=== PATIENT | female | born 1985 | race Caucasian/White ===

== ENCOUNTER → 2018-10-05 15:52 | Outpatient (CLI) | payer MEDICAID, SELFPAY ==
[2016-07-30 08:36] VITALS: BMI 19.1
[2018-10-08 10:06] LABS: HPV Reflexed? NOT INDICATED
== END ==
PROVIDERS: PCP Family Medicine; Visit Provider Obstetrics & Gynecology
DX: Z12.4 Encounter for screening for malignant neoplasm of cervix (principal)
CPT/HCPCS: 88175; G0145

== ENCOUNTER 2018-11-02 02:25 | Emergency (ER) | payer MEDICAID, SELFPAY ==
[2018-11-02 02:26] VITALS: BP 115/90; PULSE 74; RESP 16; TEMP 36.8; O2SAT 99; BMI 16.9
--- NOTE | 2018-11-02 02:44 | ED.DCSUM_ITS ---
History of Present Illness Chief Complaint: Other, Pain/Inj Informant: Patient Onset: Today - JPTA Mechanism/Context: Blunt Injury Quality of Pain: - - sore Location: lower lip Current Severity: Mild Maximum Severity: Mild Worsened by: palpation Relieved by: leaving alone Associated Symptoms: - - laceration. Negative for: Parasthesias, Weakness, Loss of consciousness, Amnesia Narrative: Patient states she accidentally leaned over too hard and hit her lower lip into her daughter's dresser sustaining a laceration. She has no dental pain, no headache or nausea or other symptoms of a head injury, no other injuries. Tetanus Immunization: >10 years Past Medical History - Allergies and Home Meds Allergies/Adverse Reactions: Allergies No Known Allergies Allergy (Verified 11/02/18 02:29) Primary Care Physician: Chucho Bates MD [Primary Care Provider] - Past Medical History: None Lives: With Family Smoking Status: Current every day smoker Review of Systems Gastrointestinal: Denies: Nausea, Vomiting Musculoskeletal: Denies: Extremity Pain Skin: Reports: Wounds. Denies: Abscess Neurological: Denies: Headache, Weakness, Numbness Physical Exam Vital Signs/Narrative: Vital Signs Temp Pulse Resp BP Pulse Ox 11/02/18 02:26 98.2 F 74 16 115/90 H 99 Inital Vital Signs reviewed: Yes General: Well nourished, Well developed Head: Normocephalic, Atraumatic Eyes: Perrl, EOMI ENT: - - Jagged/irregular/stellate 2 cm lip laceration lower lip right of midline, does not involve the vermilion border but does go to it and involve the vermilion and into the mucosal side, full-thickness. Several V-shaped aspects and 2 flaps. No dental tenderness or loosening/trauma. Otherwise oral mucosa normal. Neck: Nontender, Full ROM Skin: Normal color, No rash, Trauma - Lip laceration, as above Neurological: Alert, Oriented x3, Cranial nerves II-XII grossly intact, Normal Strength, Normal Sensation, Normal Gait Psychological: Normal affect, Normal Mood Diagnostic/Tx/Re-eval - Medical Decision Making As I discussed with patient, plastic surgery Dr. Howe not available this weekend for unassigned patients. I want her to follow-up with him because of the complex city of the wound and in case there is not a favorable cosmetic outcome. I discussed with patient that I could repair this, and that transferring her to a tertiary care center might involve seeing a plastics resident, she was comfortable with staying here. She is comfortable with the overall plan. It took 10 sutures to close the wound in its entirety with all of its different directions, splits, V-shaped, and flaps. Laceration lower lip Length: 2 cm Depth: Sub Q - into SQ fat but not muscle Shape: Stellate Prep: Sterile Conditions, Chlorhexadine Laceration Repair: Lidocaine - 3cc Number of Sutures/Jennifer: 10 Stitch Description: Ethilon, Simple, 6-0 Comment: Very complex repair. I attempted to align all landmarks and flaps, the flap was very small and the laceration was stellate, macerated, with bourne bcutaneous fat herniating out of the wound due to trauma/swelling. ED Disposition - Plan for ED Patient: Disposition: Home or Assisted Living Diagnosis: Laceration of lower lip Instructions: LACERATION, Lip/Mouth Referrals: Eleazar Howe MD [STAFF PHYSICIAN] - 5 Days for suture removal
== END 2018-11-02 04:45 | disposition home or self-care (01) ==
PROVIDERS: Emergency Provider Emergency Medicine; Family Provider Family Medicine; PCP Family Medicine
DX: S01.511A Laceration without foreign body of lip, initial encounter (principal); W22.8XXA Striking against or struck by other objects, initial encounter; Y93.9 Activity, unspecified; Y92.89 Other specified places as the place of occurrence of the external cause; Y99.8 Other external cause status; F17.200 Nicotine dependence, unspecified, uncomplicated
CPT/HCPCS: 12011; 99283

== ENCOUNTER → 2019-11-29 | Outpatient (CLI) | payer MEDICAID, SELFPAY ==
[2018-11-16 15:00] VITALS: BMI 16.9
[2019-11-29 18:13] LABS: Chlamydia Trachomatis by PCR Negative (Negative); Neisserai gonorrhoeae by PCR Negative (Negative); Probe Check PASS; Sample Adequacy Control PASS; Specimen Processing Control PASS
[2019-11-30 09:00] LABS: HIV - WCH Non-Reactive (Nonreactive); Hepatitis B Surface Antigen Non-Reactive (Nonreactive); Hepatitis C Antibody Non-Reactive (Nonreactive)
[2019-12-02 02:04] LABS: Rapid Plasmin Reagin (RPR) NONREACTIVE (NONREACTIVE)
== END | disposition home or self-care (01) ==
LOC: WOBLAB 15:03
PROVIDERS: PCP Family Medicine; Visit Provider Student in an Organized Health Care Education/Training Program
DX: Z11.3 Encounter for screening for infections with a predominantly sexual mode of transmission (principal)
CPT/HCPCS: 36415; 86592; 86703; 86803; 87340; 87491; 87591

== ENCOUNTER → 2019-12-16 | Outpatient (CLI) | payer MEDICAID, SELFPAY ==
[2018-11-16 15:00] VITALS: BMI 16.9
--- NOTE | 2019-12-16 11:00 | VUL_PTH ---
PATIENT: RAD HAHN LOC: [facility] U#:[id number] AGE/SX: 34/F ROOM: RE12/16/[address]: Dr. Criss Bryant DO : 1985 BED: DIS: 12/16/2019 SPEC #: [id number] RECD: 12/16/19 13:33 STATUS: MAXIMINO REAdrián #: [id number] ROBYN: 12/16/19 11:[address]: Criss Bryant DEPT: SURGICAL PATHOLOGY RECD BY: Parul Hauser ENTERED: 12/16/19 14:03 SP TYPE: VULVA BX OT DR: Dr. Chucho Bates MD Tissues: Vulva, NOS Procedures: Surgery Specimen Level IV HEADER OPERATION: Excision condyloma vulva PRE-OP DIAGNOSIS: Condyloma vulva TISSUE SUBMITTED: Condyloma vulva MICROSCOPIC DIAGNOSIS Condyloma vulva, excision: Fragments of condyloma. SJ:donnie 12/17/19 MICROSCOPIC DESCRIPTION Slides are reviewed. GROSS DESCRIPTION Received in fixative is one container labeled with the patient's name and designated condyloma vulva. The specimen consists of multiple variable sized pieces of urbina-white to urbina-brown skin measuring 0.2 to 0.5 cm in greatest dimension and in aggregate 1.5 x 1 x 0.3 cm. The entire specimen is submitted in one cassette. / SJ:donnie 12/16/19 TC:5 CPT: 36341
== END | disposition home or self-care (01) ==
LOC: LABSPEC 11:55
PROVIDERS: PCP Family Medicine; Visit Provider Student in an Organized Health Care Education/Training Program
DX: A63.0 Anogenital (venereal) warts (principal)
CPT/HCPCS: 88305

== ENCOUNTER 2020-01-09 23:39 | Inpatient (IN) | payer MEDICAID, SELFPAY ==
[2018-11-16 15:00] VITALS: BMI 16.9
[2020-01-09 23:39] VITALS: BP 121/90; PULSE 109; RESP 18; TEMP 36.2; O2SAT 98; BMI 17.4
[2020-01-10] VITALS (8 sets, daily range): BP systolic 113–129; BP diastolic 76–91; PULSE 96–108; RESP 16–20; TEMP 36.2–37.1; O2SAT 92–99; BMI 16.8
--- NOTE | 2020-01-10 00:12 | ED.DCSUM_ITS ---
- ER Visit Summary Date of Service: 01/10/20 Chief Complaint: Alcohol detox History of Present Illness: The patient is a 34 F who presents requesting alcohol detox. Patient states she drinks at least 6 beers per day. Patient states her last drink was approximately 40 minutes ago. Patient states that she drinks to alleviate her anxiety. Patient is not on any anxiety medications at this time. Patient denies any nausea or vomiting. Patient denies any fevers or chills. Patient does admit to some palpitations but states that is from anxiety. Patient also admits to some chest pain or shortness of breath that she attributes to her anxiety. Physical Examination: Vital signs are stable except for mild tachycardia of 109. Patient is afebrile. Patient is in no acute distress. Oral mucosa is pink and moist. Neck is supple. Trachea is midline. There is no JVD noted. Heart was regular rate and rhythm. Lungs are clear and equal bilaterally. Abdomen is soft. Bowel sounds are normal. There is no tenderness. There is no rebound or guarding noted. Skin is warm dry. Cranial nerves II through XII are intact. There are no focal motor or sensory deficits noted. Extremities are intact. There is no calf tenderness or edema. Test Results: CBC, comprehensive metabolic profile, serum alcohol level, serum hCG, urine tox screen were ordered. AST was slightly elevated at 80. Alcohol level was 367. The remaining labs were essentially within normal limits. Emergency Department Course and Treatment: Case was discussed with the hospitalist. She will admit the patient to her service. Patient understood and was agreeable with the plan. All questions were answered. Disposition: Admit to hospital Impression: 1. Alcohol abuse This note was generated with [employer] dictation software. It may contain incorrect words, spelling, and punctuation that were not noted in review of the chart prior to signing ED Disposition - Plan for ED Patient: Disposition: Acute Care Hospital [facility] Diagnosis: Alcohol abuse
[2020-01-10 00:37] LABS: Absolute Lymphocyte Count 2.82 X10^3/uL (0.83-4.51); Basophil# 0.06 X10^3/uL; Basophil% 0.8 % (0-1); Eosinophil# 0.04 X10^3/uL; Eosinophils% 0.5 % (0-5); Hematocrit 42.5 % (37-47); Hemoglobin 15.1 g/dL (12.0-15.0); Lymphocyte # 2.82 X10^3/ul (4.0); Lymphocyte % 37.1 % (19-41); Mean Corp Hgb Conc 35.5 g/dL (32-36); Mean Corpuscular Hgb 35.5 pg (27.0-32.0); Mean Platelet Vol. 11.4 fl (6.2-12.0); Monocyte# 0.63 X10^3/uL; Monocyte% 8.3 % (0-10); NRBC Flagged by Analyzer 0 % (0-5); Neutrophil # 4.03 X10^3/uL (2.7-7.7); Neutrophil % 52.9 % (47-70); Platelet Count 208 K/mm3 (150-450); RBC Distribution Width CV 12.2 % (11.6-14.6); Red Blood Count 4.25 M/mm3 (4.2-5.4); White Blood Count 7.6 K/mm3 (4.4-11.0)
[2020-01-10 00:45] LABS: Amphetamine Urine VISTA NEGATIVE (<1000 ng/mL); Barbiturate Urine VISTA NEGATIVE (< 200 ng/mL); Benzodiazepine Urine VISTA NEGATIVE (< 200 ng/mL); Cocaine Urine VISTA NEGATIVE (< 300 ng/mL); Ecstacy Urine VISTA NEGATIVE (< 500 ng/mL); Methadone Urine VISTA NEGATIVE (< 300 ng/mL); PCP Urine VISTA NEGATIVE (< 25 ng/mL); THC Urine VISTA NEGATIVE (< 50 ng/mL); Vista UDS pH Range 6
[2020-01-10 00:50] LABS: Internal QC Validated? YES +Cl - CLEAR BKGD; Pregnancy, Serum, hCG Quali. NEGATIVE Negative
[2020-01-10 01:03] LABS: ALB/GLOB Ratio 0.7 RATIO (0.9-2.4); AST(SGOT) 80 U/L (15-37); Alanine Aminotransfer ALT/SGPT 46 U/L (13-56); Albumin, Serum 3.3 g/dL (3.2-5.0); Alkaline Phosphatase 95 U/L (45-117); Anion Gap 6 (5-15); BUN 4 mg/dL (7-18); BUN/Creat Ratio 6.9 RATIO (10-20); Calcium,Total 8.2 mg/dL (8.5-10.1); Chloride 115 mmol/L (98-107); Creatinine, Serum 0.58 mg/dL (0.55-1.02); EST Glomerular Filtration Rate 127 mL/min (>60); Est Glom Filt Rate - Afr Amer 154 mL/min (>60); Globulin 4.8 g/dL (2.2-4.2); Glucose 69 mg/dL (74-106); Potassium 3.9 mmol/L (3.5-5.1); Protein, Total 8.1 g/dL (6.4-8.2); Sodium Level 144 mmol/L (136-145)
--- NOTE | 2020-01-10 01:03 | HP.PCM_ITS ---
Problem List (1) Alcohol withdrawal Status: Acute Qualifiers: Complication of substance-induced condition: with unspecified complication Qualified Code(s): F10.239 - Alcohol dependence with withdrawal, unspecified (2) Anxiety and depression Status: Chronic (3) Panic attacks Status: Chronic (4) Severe protein-calorie malnutrition Status: Chronic (5) Alcohol abuse Status: Chronic (6) Smoker Status: Chronic History of Present Illness Date of Admission: 01/10/20 Chief Complaint: Requested EtOH detoxification The patient is a 34 y/o F w/ PMHx: Tobacco use, Anxiety and Depression with frequent Anxiety/panic attacks, ? Hx VTE, EtOH abuse (6 pack 12 ounce higher EtOH beers daily) who presents to the [facility] ED on 01/10/20 with history of last alcohol intake approximately 2 to 3 hours prior to current evaluation in the ED with onset of nausea without emesis, tremors and agitation as well as severe anxiety. Patient is interested in obtaining sober status. Patient has 2 children and are interested in being sober for their welfare. She notes the primary etiology for her drinking is her severe anxiety and when she has a panic attack this is how she is medicated herself. Work-up in the ED included 97.1, heart rate 109, BP 121/90, respiratory rate 18, 98% room air, CBC with WBC 7.6, hemoglobin 15.1, platelet 2 8 without shift, CMP with chloride 115, glucose 69, AST/ALT 80/46, negative serum testing, negative urine drug screen, ethyl alcohol level 367. 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 They are currently with family. Smoking Status: Current every day smoker - Patient with ongoing currently 2 pack/day cigarette tobacco usage noting that she started when she was 14 although initially less but increased over the years. Tobacco Use: Cigarettes Alcohol: Heavy - Patient with at least a sixpack daily of higher alcohol level beers. Drugs: None - *Family History Maternal Family History: Family History (Last Updated 11/09/18 @ 15:48 by Apple Omalley) Other Anemia Anxiety CVA (cerebral vascular accident) Depression History Items: - - Patient notes a maternal family history of thyroid disease. Paternal Family History: Family History (Last Updated 11/09/18 @ 15:48 by Apple Omalley) Other Anemia Anxiety CVA (cerebral vascular accident) Depression History Items: Diabetes Review of Systems Constitutional: Reports: Anorexia, Malaise, Weakness, Weight Change, Fatigue. Denies: Chills, Fever HEENT: Denies: Head Aches, Sinus Congestion, Sinus Drainage Cardiovascular: Denies: Chest Pain, Palpitations Respiratory: Denies: Cough, Shortness of breath at rest, Sputum production Gastrointestinal: Reports: Nausea. Denies: Abdominal Pain, Vomiting Genitourinary: Denies: Dysuria Musculoskeletal: Denies: Joint Pain, Joint Tenderness Skin: Denies: Rash, Wounds Neurological: Reports: Tremor. Denies: Focal weakness, Numbness, Tingling Psychiatric: Reports: Anxiety, Depression. Denies: Homicidal Ideations, Suicidal Ideations Hematologic/ Lymphatic: Denies: Easy Bruising, Easy Bleeding VTE Information - Inpt Only VTE Present on Admission: No VTE Mechan Device Prophylaxis: SCD's VTE Pharm Prophylaxis ordered?: Yes Patient Problems: Active and Suspected Problems (Last Updated 11/09/18 @ 15:44 by Apple Omalley) Alcohol withdrawal (Acute) Subjective: Seated upright in the ED bed, extremely anxious, tearful, restless. Objective: Physical Examination: General: awake, alert, oriented x 3 and cooperative, seated upright in the ED bed, restless, anxious, tearful. Skin: normal color, turgor, no icterus, cyanosis. HEENT: AT/NC, EOMI, PERRLA, dry MM, no carotid bruits or JVD noted. Lungs: CTA bilaterally, moderate effort, moderate decrease BL bases, no rales, ronchi or wheezing. Heart: Tachycardic with regular rhythm; no gallop, rub audible. Abdomen: soft, thin cachectic habitus, NTTP, ND, normal BS, positive HM, mild. Extremities: no cyanosis, clubbing, or edema. Neurological: patient awake, alert, oriented as noted; cognitive function suspect near intact; pupils equally reactive to light and accomodation; cranial nerves II-XII grossly normal, moving all 4 extremities, no focal deficits, strength mildly moderately global decrease secondary to acute presentation, mild tremors noted. Psychiatric: affect appears anxious, tearful, obvious evidence of depression and underlying severe anxiety. - Physical Exam Vitals/I&O's: Vital Signs Temp Pulse Resp BP Pulse Ox 97.1 F L 109 H 18 121/90 H 98 01/09/20 23:39 01/09/20 23:39 01/09/20 23:39 01/09/20 23:39 01/09/20 23:39 Oxygen Delivery Method Room Air Weight: 107 lb 12.897 oz Body Mass Index (BMI) 17.4 Laboratory Results 01/10/20 00:20: Urine Opiates Screen NEGATIVE, Urine Methadone Screen NEGATIVE, Ur Barbiturates Screen NEGATIVE, Ur Phencyclidine Scrn NEGATIVE, Ur Amphetamines Screen NEGATIVE, U Methamphetamin-MDMA NEGATIVE, U Benzodiazepines Scrn NEGATIVE, Urine Cocaine Screen NEGATIVE, U Cannabinoids Screen NEGATIVE, Ur Drug Screen Comment 01/10/20 00:25: WBC 7.6, RBC 4.25, Hgb 15.1 H, Hct 42.5, MCV 100.0 H, MCH 35.5 H , MCHC 35.5, RDW Std Deviation 45.0 H, RDW Coeff of Christelle 12.2, Plt Count 208, MPV 11.4, Immature Gran % (Auto) 0.400, Neut % (Auto) 52.9, Lymph % (Auto) 37.1, Granite % (Auto) 8.3, Eos % (Auto) 0.5, Baso % (Auto) 0.8, Absolute Neuts (auto) 4.0, Absolute Lymphs (auto) 2.82, Nucleated RBC % 0 01/10/20 00:25: Sodium Pending, Potassium Pending, Chloride Pending, Carbon Dioxide Pending, Anion Gap Pending, BUN Pending, Creatinine Pending, Est GFR (MDRD) Af Amer Pending, Est GFR (MDRD) Non-Af Pending, BUN/Creatinine Ratio Pending, Glucose Pending, Calcium Pending, Total Bilirubin Pending, AST Pending, ALT Pending, Alkaline Phosphatase Pending, Total Protein Pending, Albumin Pending 01/10/20 00:25: Ethyl Alcohol Pending 01/10/20 00:25: Serum , Qual NEGATIVE Assessment/Plan All Active Problems (Last Updated 11/09/18 @ 15:44 by Apple Omalley) Alcohol withdrawal (Acute) Laceration of lower lip (Acute) The patient is a 34 y/o F w/ PMHx: Tobacco use, Anxiety and Depression with frequent Anxiety/panic attacks, ? Hx VTE, EtOH abuse (6 pack 12 ounce higher EtOH beers daily) who presents to the [facility] ED on 01/10/20 with history of last alcohol intake approximately 2 to 3 hours prior to current evaluation in the ED with onset of nausea without emesis, tremors and agitation as well as severe anxiety. 1. Acute EtOH Withdrawal: Will admit to medical surgical floor, routine labs obtained in the ED upon presentation and notable for AST/ALT 80/46, ethyl alcohol level 367. Given interest in sobriety, will initiate and continue on protocol with taper course of Phenobarbital, scheduled gabapentin for seizure prophylaxis, as needed Catapres, Bentyl, Vistaril, IV fluids, IV antiemetics, Tylenol as needed for pain. Will consult Case management for assistance for t ransition to next level of rehabilitation care. Mag, phos pending. Maintain on CIWA protocol concurrently. Patient severe anxiety will need to be aggressively treated to assist in her sobriety. 2. Anxiety and Depression with Panic Attacks: Patient previously on Effexor but for unclear reasons stopped but willing to restart, following with counseling and understands that aggressive treatment of anxiety and depression including her panic attacks with ongoing therapy and medications will assist in continuing to aid her in success with sobriety. 3. Severe protein calorie malnutrition: Evidenced per reduced BMI of 16 as well as obvious fat and muscle loss, nutrition consulted for recommendations. 4. Tobacco Abuse: Encouraged cessation, inpatient consultation per RT, NR if desired. 5. ? History of VTE: Noted history and records, unclear if underlying hypercoagulable state, DVT prophylaxis to be cautious. 6. DVT prophylaxis: SCDs, Lovenox. Inpatient E&M: 59159 Init Hosp L3
[2020-01-10] MEDS: Phenobarbital 32.4 MG Tablet PO ×6 (02:17→21:49)
[2020-01-10] MEDS: 0.9% Saline Lock 10 ML Syringe IV ×2 (02:19→05:50)
[2020-01-10] MEDS: Lactated Ringers 1,000 ML 125 ML IV (02:22)
[2020-01-10 02:40] LABS: Magnesium 2.5 mg/dL (1.6-2.6); Phosphorus 3.9 mg/dL (2.5-4.9)
[2020-01-10] MEDS: Gabapentin 300 MG Capsule PO ×2 (04:59→18:10)
[2020-01-10] MEDS: hydrOXYzine PAM 25 MG Capsule 50 MG PO ×4 (05:58→20:45)
[2020-01-10] MEDS: Folic Acid 1 MG Tablet PO (08:22)
[2020-01-10] MEDS: Multivitamins,Therapeutic Tablet 1 TABLET PO (08:22)
[2020-01-10] MEDS: Enoxaparin 40 MG/0.4 ML Syringe SC (08:22)
[2020-01-10] MEDS: Thiamine Hydrochloride 100 MG Tablet PO (08:22)
--- NOTE | 2020-01-10 10:07 | ADDICTION ---
This typewriter tester met with patient in her room to complete ASAM, MSE, AUDIT assessments and to begin planning for discharge. She reports that she has been ingesting a 6pack+ of high alcoholic content IPA beer due to ongoing, severe anxiety and panic attacks. She appears appropriate for the 4.0 LOC at this time. Patient's discharge plan: Planned for 01/14/2020- Refused coordination for transportation stating that she will be able to coordinate transport upon d/c when she gets her cell phone. She has a counseling appointment with [facility] on 01/17/2020. She has a psychiatric appointment with [facility] on 01/24/2020.
--- NOTE | 2020-01-10 10:33 | PCM.NTREPORT ---
Nutrition Therapy Report - History Current diet / nutrition support order:: Regular - Anthropometric Measurements Height:: 5 ft 6 in Weight:: 47.287 kg Body Mass Index (BMI):: 16.8 - Relevant Labs Relevant Labs:: Hgb 15.1 g/dL (12.0-15.0) H 01/10/20 00:25 MCV 100.0 fL (81-99) H 01/10/20 00:25 MCH 35.5 pg (27.0-32.0) H 01/10/20 00:25 RDW Std Deviation 45.0 fl (35.1-43.9) H 01/10/20 00:25 Chloride 115 mmol/L (98-107) H 01/10/20 00:25 BUN 4 mg/dL (7-18) L 01/10/20 00:25 BUN/Creatinine Ratio 6.9 RATIO (10-20) L 01/10/20 00:25 Glucose 69 mg/dL (74-106) L 01/10/20 00:25 Calcium 8.2 mg/dL (8.5-10.1) L 01/10/20 00:25 AST 80 U/L (15-37) H 01/10/20 00:25 Globulin 4.8 g/dL (2.2-4.2) H 01/10/20 00:25 Albumin/Globulin Ratio 0.7 RATIO (0.9-2.4) L 01/10/20 00:25 - Assessment Food / Nutrition-Related History:: Pt states Regular diet at home -po intake has been not good x 6 mo d/t anxiety - drinking a 6 pk of 12 oz beers per day. UBW: 57.606 kg - wt loss of 18% x 6 mo (significant). PO intake of breakfast ok - agreeable to ONS w/ medpass for increased nutrition if consumed. [ End ] - Nutrition Diagnosis Problem / Etiology / Signs & Symptoms (PES):: Pt with suboptimal po intake d/t anxiety and 6pk beer consumption daily AEB 18% wt loss x 6 mo, poor po intake, and fat/muscle loss. [ End ] Evidence of Malnutrition Exists:: Yes Severe PCM:: Social & Environmental circumstances - Nutrition Intervention Nutrition Prescription:: [id number] iraj / 45-55 gm pro / day - Food / Nutrient Delivery Interventions Summary of nutrition intervention:: Continue Regular diet - will add ONS at medpass for increased nutrition if consumed. Nutrition support ordered as / adjusted to:: Order 120 cc ensure enlive 4x/day with medpass - prefers vanilla or strawberry Nutrition education provided?: No - MNT Monitoring Further MNT monitoring and evaluation required?: Yes MNT Follow-up in:: 3-5 days - please call RD/LD [phone] if questions
[2020-01-11 02:12] VITALS: BP 111/67; PULSE 94; RESP 16; TEMP 36.8; O2SAT 97
[2020-01-11] MEDS: Phenobarbital 32.4 MG Tablet PO ×6 (02:16→21:27)
[2020-01-11 07:20] VITALS: O2SAT 96
[2020-01-11 08:50] VITALS: BP 105/73; PULSE 104; RESP 16; TEMP 36.8; O2SAT 100
[2020-01-11] MEDS: Folic Acid 1 MG Tablet PO (08:55)
[2020-01-11] MEDS: Enoxaparin 40 MG/0.4 ML Syringe SC (08:55)
[2020-01-11] MEDS: Thiamine Hydrochloride 100 MG Tablet PO (08:55)
[2020-01-11] MEDS: Multivitamins,Therapeutic Tablet 1 TABLET PO (08:55)
[2020-01-11] MEDS: hydrOXYzine PAM 25 MG Capsule 50 MG PO (09:01)
--- NOTE | 2020-01-11 09:20 | PN_ITS ---
Patient Problems: Active and Suspected Problems (Last Updated 11/09/18 @ 15:44 by Apple Omalley) Alcohol withdrawal (Acute) Subjective: No issues overnight, doing well. Vitals/I&O's: Vital Signs Temp Pulse Resp BP Pulse Ox 98.2 F 104 H 16 105/73 100 01/11/20 08:50 01/11/20 08:50 01/11/20 08:50 01/11/20 08:50 01/11/20 08:50 Oxygen Delivery Method Room Air Weight: 104 lb 4 oz Body Mass Index (BMI) 16.8 Intake and Output for Last 24 Hours 01/09/20 01/10/20 01/11/20 23:59 23:59 23:59 Intake Total 1750.00 / 1750.00 Output Total 600 / 600 500 / 500 Balance 1150.00 / 1150.00 -500 / -500 General: Alert, Oriented x3, Cooperative, No apparent distress HEENT: Atraumatic, PERRLA, EOMI, Normocephalic Oral: Moist Mucosa Neck: Supple, No JVD Lungs: Clear to auscultation, Normal air movement, No rhonchi, No wheeze, No rales Cardiovascular: Regular rate, Regular Rhythm, Normal S1, Normal S2, No murmurs Abdomen: Soft, Non Tender, Non-Distended, No Hepato-splenomegaly Extremities: No edema, Capillary Refill Less than 3 Seconds Skin: No rashes, No breakdown Neurological: Neuro grossly intact, Sensory exam intact to light touch and pain Psych/Mental Status: Normal Affect, Appropriate Current Medications Acetaminophen (Tylenol) 650 mg PO Q4H PRN PRN PRN Reason: Temp > 100.4 F, pain 1-10/10 Al Hydroxide/Mg Hydroxide (Mylanta Ii) 30 ml PO Q6H PRN PRN PRN Reason: dyspesia Albuterol Sulfate (Ventolin Aerosols) 2.5 mg INHALATION Q2H PRN PRN PRN Reason: Dyspnea, wheezing Bisacodyl (Dulcolax) 10 mg RECTAL DAILY PRN PRN Reason: Constipation Dicyclomine HCl (Bentyl) 20 mg PO Q6H PRN PRN PRN Reason: abdominal discomfort Enoxaparin Sodium (Lovenox) 40 mg SC DAILY CAROLYN Last Admin: 01/11/20 08:55 Dose: 40 mg Documented by: Folic Acid (Folic Acid) 1 mg PO DAILY@0800 [facility] Last Admin: 01/11/20 08:55 Dose: 1 mg Documented by: Gabapentin (Neurontin) 300 mg PO Q8H PRN PRN PRN Reason: moderate to severe anxiety Last Admin: 01/10/20 18:10 Dose: 300 mg Documented by: Hydralazine HCl (Apresoline Iv) 10 mg IV Q4H PRN PRN PRN Reason: SBP > 160 Hydroxyzine Pamoate (Vistaril Pamoate Capsule) 50 mg PO Q4H PRN PRN PRN Reason: mild anxiety Last Admin: 01/11/20 09:01 Dose: 50 mg Documented by: Ibuprofen (Motrin) 600 mg PO Q8H PRN PRN PRN Reason: Pain Score 1-10/10 Loperamide HCl (Imodium) 2 mg PO Q4H PRN PRN PRN Reason: LOOSE STOOLS [facility]it[facility]amin) [facility] Last Admin: 01/11/20 08:55 Dose: 1 tablet Documented by: Nicotine (Nicoderm Cq (Pbkc)) 21 mg TRANSDERM. DAILY [facility] Last Admin: 01/11/20 08:56 Dose: 21 mg Documented by: Nutritional Formula (Lactose Free) (Ensure Enlive) 120 ml PO 4X/DAY [facility] Last Admin: 01/11/20 08:55 Dose: 120 ml Documented by: Ondansetron HCl (Zofran Odt) 8 mg PO Q8H PRN PRN PRN Reason: NAUSEA Phenobarbital (Phenobarbital) 97.2 mg PO Q4H [facility]; Taper Stop: 01/14/20 10:14 Last Admin: 01/11/20 05:29 Dose: 97.2 mg Documented by: Senna (Senokot) 2 tablet PO QHS PRN PRN Reason: Constipation Sodium Chloride () 10 - 40 ml IV UD PRN PRN Reason: SALINE FLUSH Last Admin: 01/10/20 05:50 Dose: 10 ml Documented by: Thiamine HCl (Vitamin B1) [facility] Last Admin: 01/11/20 08:55 Dose: 100 mg Documented by: Trazodone HCl (Desyrel) 100 mg PO QHS PRN PRN PRN Reason: INSOMNIA STROKE Vital Signs/Narrative: Vital Signs Temp Pulse Resp BP Pulse Ox 01/11/20 08:50 98.2 F 104 H 16 105/73 100 01/11/20 07:20 96 Medical Necessity - Tobacco Use Smoking Status: Current every day smoker Tobacco Use: Cigarettes Assessment/Plan All Active Problems (Last Updated 11/09/18 @ 15:44 by Apple Omalley) Alcohol withdrawal (Acute) Laceration of lower lip (Acute) 1. Acute alcohol withdrawal/tobacco abuse -Continue with the alcohol withdrawal protocol -CIWA was 2 -Discussed cessation, nicotine replacement available if necessary 2. Anxiety/depression/panic attacks -Used to be on Effexor but unsure why she discontinued -She is continuing with therapy, can restart her Effexor 3. Severe protein calorie malnutrition -BMI is 16 -Consult medical nutrition DVT: SCDs/Lovenox Inpatient E&M: 78129 Subs Hosp L2
[2020-01-11 14:50] VITALS: BP 120/79; PULSE 95; RESP 16; TEMP 36.8; O2SAT 99
[2020-01-11] MEDS: Venlafaxine HCl 75 MG Tablet PO ×2 (15:22→21:27)
[2020-01-11] MEDS: traZODone 100 MG Tablet PO (21:27)
[2020-01-11 21:32] VITALS: BP 116/82; PULSE 84; RESP 18; TEMP 36.4; O2SAT 98
[2020-01-12] VITALS (7 sets, daily range): BP systolic 106–117; BP diastolic 78–90; PULSE 74–99; RESP 16–18; TEMP 36.4–36.9; O2SAT 97–99
[2020-01-12] MEDS: Phenobarbital 32.4 MG Tablet PO ×5 (02:30→21:52)
[2020-01-12] MEDS: Multivitamins,Therapeutic Tablet 1 TABLET PO (08:20)
[2020-01-12] MEDS: Thiamine Hydrochloride 100 MG Tablet PO (08:20)
[2020-01-12] MEDS: Folic Acid 1 MG Tablet PO (08:20)
--- NOTE | 2020-01-12 09:48 | PCM.PN.HOSP ---
Patient Problems: Active and Suspected Problems (Last Updated 11/09/18 @ 15:44 by Apple Omalley) Alcohol withdrawal (Acute) Subjective: Doing well, no issues overnight. Still feels little bit anxious. Would like to be discharged tomorrow because her sister has her kids and her sister has to go to a wedding on Friday. Vitals/I&O's: Vital Signs Temp Pulse Resp BP Pulse Ox 98.5 F 96 16 110/84 H 99 01/12/20 06:05 01/12/20 06:05 01/12/20 06:05 01/12/20 06:05 01/12/20 06:05 Oxygen Delivery Method Room Air Weight: 104 lb 4 oz Body Mass Index (BMI) 16.8 Intake and Output for Last 24 Hours 01/10/20 01/11/20 01/12/20 23:59 23:59 23:59 Intake Total 1750.00 / 1750.00 Output Total 600 / 600 500 / 500 Balance 1150.00 / 1150.00 -500 / -500 General: Alert, Oriented x3, Cooperative, No apparent distress HEENT: Atraumatic, PERRLA, EOMI, Normocephalic Oral: Moist Mucosa Neck: Supple, No JVD Lungs: Clear to auscultation, Normal air movement, No rhonchi, No wheeze, No rales Cardiovascular: Regular rate, Regular Rhythm, Normal S1, Normal S2, No murmurs Abdomen: Soft, Non Tender, Non-Distended, No Hepato-splenomegaly Extremities: No edema, Capillary Refill Less than 3 Seconds Skin: No rashes, No breakdown Neurological: Neuro grossly intact, Sensory exam intact to light touch and pain Psych/Mental Status: Normal Affect, Appropriate Current Medications Acetaminophen (Tylenol) 650 mg PO Q4H PRN PRN PRN Reason: Temp > 100.4 F, pain 1-10/10 Al Hydroxide/Mg Hydroxide (Mylanta Ii) 30 ml PO Q6H PRN PRN PRN Reason: dyspesia Albuterol Sulfate (Ventolin Aerosols) 2.5 mg INHALATION Q2H PRN PRN PRN Reason: Dyspnea, wheezing Bisacodyl (Dulcolax) 10 mg RECTAL DAILY PRN PRN Reason: Constipation Dicyclomine HCl (Bentyl) 20 mg PO Q6H PRN PRN PRN Reason: abdominal discomfort Enoxaparin Sodium (Lovenox) 40 mg SC DAILY [facility] Last Admin: 01/11/20 08:55 Dose: 40 mg Documented by: Folic Acid (Folic Acid) 1 mg PO DAILY@0800 [facility] Last Admin: 01/12/20 08:20 Dose: 1 mg Documented by: Gabapentin (Neurontin) 300 mg PO Q8H PRN PRN PRN Reason: moderate to severe anxiety Last Admin: 01/10/20 18:10 Dose: 300 mg Documented by: Hydralazine HCl (Apresoline Iv) 10 mg IV Q4H PRN PRN PRN Reason: SBP > 160 Hydroxyzine Pamoate (Vistaril Pamoate Capsule) 50 mg PO Q4H PRN PRN PRN Reason: mild anxiety Last Admin: 01/11/20 09:01 Dose: 50 mg Documented by: Ibuprofen (Motrin) 600 mg PO Q8H PRN PRN PRN Reason: Pain Score 1-10/10 Loperamide HCl (Imodium) 2 mg PO Q4H PRN PRN PRN Reason: LOOSE STOOLS [facility] Admin: 01/12/20 08:20 Dose: 1 tablet Documented by: Nicotine (Nicoderm Cq (Pbkc)) 21 mg TRANSDERM. DAILY [facility] Last Admin: 01/11/20 08:56 Dose: 21 mg Documented by: Nutritional Formula (Lactose Free) (Ensure Enlive) 120 ml PO 4X/DAY [facility] Last Admin: 01/11/20 21:27 Dose: Not Given Documented by: Ondansetron HCl (Zofran Odt) 8 mg PO Q8H PRN PRN PRN Reason: NAUSEA Phenobarbital (Phenobarbital) 64.8 mg PO Q4H [facility]; Taper Stop: 01/14/20 10:14 Last Admin: 01/12/20 06:03 Dose: 64.8 mg Documented by: Senna (Senokot) 2 tablet PO QHS PRN PRN Reason: Constipation Sodium Chloride () 10 - 40 ml IV UD PRN PRN Reason: SALINE FLUSH Last Admin: 01/10/20 05:50 Dose: 10 ml Documented by: Thiamine HCl (Vitamin B1) [facility] Last Admin: 01/12/20 08:20 Dose: 100 mg Documented by: Trazodone HCl (Desyrel) 100 mg PO QHS PRN PRN PRN Reason: INSOMNIA Last Admin: 01/11/20 21:27 Dose: 100 mg Documented by: Venlafaxine HCl (Effexor) 75 mg PO BID [facility] Last Admin: 01/11/20 21:27 Dose: 75 mg Documented by: STROKE Vital Signs/Narrative: Vital Signs Temp Pulse Resp BP Pulse Ox 01/12/20 06:05 98.5 F 96 16 110/84 H 99 Medical Necessity - Tobacco Use Smoking Status: Current every day smoker Tobacco Use: Cigarettes Assessment/Plan All Active Problems (Last Updated 11/09/18 @ 15:44 by Apple Omalley) Alcohol withdrawal (Acute) Laceration of lower lip (Acute) 1. Acute alcohol withdrawal/tobacco abuse -Continue with the alcohol withdrawal protocol -CIWA was 1 -Discussed cessation, nicotine replacement available if necessary 2. Anxiety/depression/panic attacks -Used to be on Effexor but unsure why she discontinued -She is continuing with therapy, can restart her Effexor 3. Severe protein calorie malnutrition -BMI is 16 -Consult medical nutrition DVT: SCDs/Lovenox Inpatient E&M: 28665 Subs Hosp L2
--- NOTE | 2020-01-12 10:26 | ADDICTION ---
This loan underwriter met with patient to finalize discharge plans. Patient plans to meet with her individual clinician with [facility] on 01/18/2020 and will meet with [facility] for psychiatry on 01/24/2020. She reports that this plan works well for her. She declined further services by this loan underwriter at this time.
[2020-01-12] MEDS: Enoxaparin 40 MG/0.4 ML Syringe SC (10:39)
[2020-01-12] MEDS: Venlafaxine HCl 75 MG Tablet PO ×2 (11:41→21:52)
[2020-01-12] MEDS: traZODone 100 MG Tablet PO (21:57)
[2020-01-13 03:50] VITALS: BP 106/75; PULSE 91; RESP 16; TEMP 36.8; O2SAT 100
[2020-01-13] MEDS: Phenobarbital 32.4 MG Tablet PO ×2 (03:51→10:17)
--- NOTE | 2020-01-13 09:22 | DCINST_ITS ---
- Discharge Diagnoses Current Active Problems: Current Active and Chronic Problems (Last Updated 11/09/18 @ 15:44 by Apple Omalley) Alcohol abuse (Chronic) Alcohol withdrawal (Acute) Anxiety and depression (Chronic) Panic attacks (Chronic) Severe protein-calorie malnutrition (Chronic) You will use the following diet at home:: Regular Your food should be the consistency of: Regular Your liquids should be the consistency of: Regular/Thin Discharge Activity: Return to Normal Activity Call your doctor if you observe: Fever of 101 or Higher, Shortness of breath, Dizziness, Fainting spells, Swelling in the ankles, Chest pain, Increased palpitations (irregular heartbeat) Allergies/Adverse Reactions: Allergies No Known Allergies Allergy (Verified 11/16/18 14:55) Medications to take at Discharge Venlafaxine HCl [Effexor] 75 mg PO BID #60 tab 01/13/20 The following prescriptions were given: Venlafaxine HCl [Effexor] 75 mg PO BID #60 tab Transmission Status: Pending to [facility] Primary Care Physician: Chucho Bates MD [Primary Care Provider] - Please follow up with your Primary Care Physician in: 3-5 days Test Results: Test results from this visit will be discussed in further detail at your follow- up appointment, if applicable. Please Follow Up With: 180 When: As scheduled
--- NOTE | 2020-01-13 10:07 | PCM.DC.SUM ---
Discharge Date and Diagnosis - Problem List Patient Problems: Active and Suspected Problems (Last Updated 11/09/18 @ 15:44 by Apple Omalley) Alcohol withdrawal (Acute) Date of Admission: 01/10/20 Date of Discharge: 01/13/20 - Primary Discharge Diagnosis Acute Problems: Active Problems (Last Updated 11/09/18 @ 15:44 by Apple Omalley) Alcohol withdrawal (Acute) - Secondary Discharge Diagnosis Chronic Problems: Chronic Problems Alcohol abuse (Chronic) Anxiety and depression (Chronic) Panic attacks (Chronic) Severe protein-calorie malnutrition (Chronic) Smoker (Chronic) Hospital Course and Treatment Operations: None Procedures: None Summary of Care Provided: Per HPI: The patient is a 34 y/o F w/ PMHx: Tobacco use, Anxiety and Depression with frequent Anxiety/panic attacks, ? Hx VTE, EtOH abuse (6 pack 12 ounce higher EtOH beers daily) who presents to the [facility] ED on 01/10/20 with history of last alcohol intake approximately 2 to 3 hours prior to current evaluation in the ED with onset of nausea without emesis, tremors and agitation as well as severe anxiety. Patient is interested in obtaining sober status. Patient has 2 children and are interested in being sober for their welfare. She notes the primary etiology for her drinking is her severe anxiety and when she has a panic attack this is how she is medicated herself. Work-up in the ED included 97.1, heart rate 109, BP 121/90, respiratory rate 18, 98% room air, CBC with WBC 7.6, hemoglobin 15.1, platelet 2 8 without shift, CMP with chloride 115, glucose 69, AST/ALT 80/46, negative serum testing, negative urine drug screen, ethyl alcohol level 367. Hospital Course: 1. Acute alcohol withdrawal/tobacco abuse -Continue with the alcohol withdrawal protocol -CIWA was 0 today, she will be discharged home with outpatient follow-up to 180, she did not want to do an inpatient program. -Discussed tobacco cessation, nicotine replacement available if necessary 2. Anxiety/depression/panic attacks -Used to be on Effexor but unsure why she discontinued -She is continuing with therapy, can restart her Effexor at 75 mg p.o. twice daily, and she will need to follow-up with her PCP for refills and no dose adjustment if necessary 3. Severe protein calorie malnutrition -BMI is 16 -Consult medical nutrition associated with her beer drinking and that she just has not been eating well Patient Problems: Active and Suspected Problems (Last Updated 11/09/18 @ 15:44 by Apple Omalley) Alcohol withdrawal (Acute) - Physical Exam Vitals/I&O's: Vital Signs Temp Pulse Resp BP Pulse Ox 98.2 F 91 16 106/75 100 01/13/20 03:50 01/13/20 03:50 01/13/20 03:50 01/13/20 03:50 01/13/20 03:50 Oxygen Delivery Method Room Air Weight: 104 lb 4 oz Body Mass Index (BMI) 16.8 Intake and Output for Last 24 Hours 01/11/20 01/12/20 01/13/20 23:59 23:59 23:59 Intake Total 2600 / 2600 250 / 250 Output Total 500 / 500 Balance -500 / -500 2600 / 2600 250 / 250 General: Alert, Oriented x3, Cooperative, No apparent distress HEENT: Atraumatic, PERRLA, EOMI, Normocephalic Oral: Moist Mucosa Neck: Supple, No JVD Lungs: Clear to auscultation, Normal air movement, No rhonchi, No wheeze, No rales Cardiovascular: Regular rate, Regular Rhythm, Normal S1, Normal S2, No murmurs Abdomen: Soft, Non Tender, Non-Distended, No Hepato-splenomegaly Extremities: No edema, Capillary Refill Less than 3 Seconds Skin: No rashes, No breakdown Neurological: Neuro grossly intact, Sensory exam intact to light touch and pain Psych/Mental Status: Normal Affect, Appropriate Current Medications Acetaminophen (Tylenol) 650 mg PO Q4H PRN PRN PRN Reason: Temp > 100.4 F, pain 1-10/10 Al Hydroxide/Mg Hydroxide (Mylanta Ii) 30 ml PO Q6H PRN PRN PRN Reason: dyspesia Albuterol Sulfate (Ventolin Aerosols) 2.5 mg INHALATION Q2H PRN PRN PRN Reason: Dyspnea, wheezing Bisacodyl (Dulcolax) 10 mg RECTAL DAILY PRN PRN Reason: Constipation Dicyclomine HCl (Bentyl) 20 mg PO Q6H PRN PRN PRN Reason: abdominal discomfort Enoxaparin Sodium (Lovenox) 40 mg SC DAILY [facility] Last Admin: 01/12/20 10:39 Dose: 40 mg Documented by: Folic Acid (Folic Acid) 1 mg PO DAILY@0800 [facility] Last Admin: 01/12/20 08:20 Dose: 1 mg Documented by: Gabapentin (Neurontin) 300 mg PO Q8H PRN PRN PRN Reason: moderate to severe anxiety Last Admin: 01/10/20 18:10 Dose: 300 mg Documented by: Hydralazine HCl (Apresoline Iv) 10 mg IV Q4H PRN PRN PRN Reason: SBP > 160 Hydroxyzine Pamoate (Vistaril Pamoate Capsule) 50 mg PO Q4H PRN PRN PRN Reason: mild anxiety Last Admin: 01/11/20 09:01 Dose: 50 mg Documented by: Ibuprofen (Motrin) 600 mg PO Q8H PRN PRN PRN Reason: Pain Score 1-10/10 Loperamide HCl (Imodium) 2 mg PO Q4H PRN PRN PRN Reason: LOOSE STOOLS [facility] ([facility]) [facility] Admin: 01/12/20 08:20 Dose: 1 tablet Documented by: Nicotine (Nicoderm Cq (Pbkc)) 21 mg TRANSDERM. DAILY [facility] Last Admin: 01/12/20 10:39 Dose: 21 mg Documented by: Nutritional Formula (Lactose Free) (Ensure Enlive) 120 ml PO 4X/DAY [facility] Last Admin: 01/12/20 21:53 Dose: Not Given Documented by: Ondansetron HCl (Zofran Odt) 8 mg PO Q8H PRN PRN PRN Reason: NAUSEA Phenobarbital (Phenobarbital) 64.8 mg PO Q6H [facility]; Taper Stop: 01/14/20 10:14 Last Admin: 01/13/20 03:51 Dose: 64.8 mg Documented by: Senna (Senokot) 2 tablet PO QHS PRN PRN Reason: Constipation Sodium Chloride () 10 - 40 ml IV UD PRN PRN Reason: SALINE FLUSH Last Admin: 01/10/20 05:50 Dose: 10 ml Documented by: Thiamine HCl (Vitamin B1) [facility] Last Admin: 01/12/20 08:20 Dose: 100 mg Documented by: Trazodone HCl (Desyrel) 100 mg PO QHS PRN PRN PRN Reason: INSOMNIA Last Admin: 01/12/20 21:57 Dose: 100 mg Documented by: Venlafaxine HCl (Effexor) 75 mg PO BID [facility] Last Admin: 01/12/20 21:52 Dose: 75 mg Documented by: Discharge Activity: Return to Normal Activity Call your doctor if you observe: Fever of 101 or Higher, Shortness of breath, Dizziness, Fainting spells, Swelling in the ankles, Chest pain, Increased palpitations (irregular heartbeat) Home Medications: Medications to take at Discharge Venlafaxine HCl [Effexor] 75 mg PO BID #60 tab 01/13/20 Following Prescriptions Were Given to Patient: Venlafaxine HCl [Effexor] 75 mg PO BID #60 tab Transmission Status: Received by [facility] Primary Care Physician: Chucho Bates MD [Primary Care Provider] - Please follow up with your Primary Care Physician in: 3-5 days Please Follow Up With: 180 When: As scheduled Disposition: Home Minutes spent on discharge:: 35 Patient Condition:: Stable Medical Necessity - Tobacco Use Smoking Status: Current every day smoker Tobacco Use: Cigarettes Meaningful Use Info Meaningful Use Diagnoses (Choose all that apply): None applicable Inpatient E&M: 57627 Disch Hosp
[2020-01-13] MEDS: Thiamine Hydrochloride 100 MG Tablet PO (10:17)
[2020-01-13] MEDS: Folic Acid 1 MG Tablet PO (10:17)
[2020-01-13] MEDS: Venlafaxine HCl 75 MG Tablet PO (10:18)
[2020-01-13] MEDS: Multivitamins,Therapeutic Tablet 1 TABLET PO (10:18)
[2020-01-13 10:23] VITALS: BP 113/76; PULSE 100; RESP 18; TEMP 36.5; O2SAT 100
== END 2020-01-13 10:32 | disposition home or self-care (01) | DRG 775 ==
LOC: ED 01-10 01:11 → MS3 01-10 01:16
PROVIDERS: Admitting Provider Family Medicine; Emergency Provider Emergency Medicine; PCP Family Medicine; Referring Provider Family Medicine; Visit Provider Family Medicine
DX: F10.239 Alcohol dependence with withdrawal, unspecified (principal); E43 Unspecified severe protein-calorie malnutrition; Y90.8 Blood alcohol level of 240 mg/100 ml or more; F17.210 Nicotine dependence, cigarettes, uncomplicated; Z68.1 Body mass index [BMI] 19.9 or less, adult; F41.0 Panic disorder [episodic paroxysmal anxiety]; F32.9 Major depressive disorder, single episode, unspecified; Z86.718 Personal history of other venous thrombosis and embolism
CPT/HCPCS: 80053; 80307; 80320; 83735; 84100; 84703; 85025; 97802; 99285; 99406; J7120; A4216; G0480

== ENCOUNTER → 2020-05-26 | Outpatient (CLI) | payer MEDICAID, SELFPAY ==
[2020-01-10 10:37] VITALS: BMI 16.8
--- NOTE | 2020-05-26 | WART_PTH ---
PATIENT: RAD HAHN LOC: [facility] U#:[id number] AGE/SX: 35/F ROOM: RE05/26/[address]: Dr. Criss Bryant DO : 1985 BED: DIS: 05/26/2020 SPEC #: [id number] RECD: 05/26/20 15:21 STATUS: MAXIMINO GRISELDA #: [id number] ROBYN: 05/26/20 00:[address]: Criss Bryant DEPT: SURGICAL PATHOLOGY RECD BY: Ponce Braswell ENTERED: 05/29/20 10:55 SP TYPE: Chey ROTH DR: Dr. Chucho Bates MD Tissues: Epidermis Procedures: Surgery Specimen Level IV HEADER OPERATION: Excision condyloma PRE-OP DIAGNOSIS: Condyloma TISSUE SUBMITTED: Perineal wart MICROSCOPIC DIAGNOSIS Perineal wart, biopsy: Consistent with condyloma. AM:donnie 05/30/2020 MICROSCOPIC DESCRIPTION Slides are reviewed. GROSS DESCRIPTION Received in fixative is one container labeled with the patient's name and designated perineal wart. The specimen consists of one irregular fragment of light urbina soft tissue that measures 0.3 x 0.2 x 0.1 cm. The specimen is totally submitted in one cassette. / AM:donnie 05/29/20 TC:5 CPT: 86755
== END | disposition home or self-care (01) ==
LOC: LABSPEC 15:13
PROVIDERS: PCP Family Medicine; Visit Provider Student in an Organized Health Care Education/Training Program
DX: B07.9 Viral wart, unspecified (principal)
CPT/HCPCS: 88305

== ENCOUNTER 2021-02-17 17:54 | Emergency (ER) | payer MEDICAID, SELFPAY ==
[2021-02-17 17:55] VITALS: BP 109/78; PULSE 103; RESP 14; TEMP 36.4; O2SAT 97; BMI 19.3
--- NOTE | 2021-02-17 18:14 | EDS_ITS ---
HPI History of Present Illness Chief Complaint: Lower Extremity Injury Informant: patient, spouse/S.O. and EMS Narrative Narrative: 35-year-old female presents the emergency department with a right knee injury. Patient was attempting to go on a horse when the saddle came loose and she fell down. She notes a deformity to the proximal tibia. She denies any other injuries. [facility] Medical History Anxiety and depression History of blood clots History of blood transfusion Home Medications venlafaxine 75 mg PO BID #60 tab 01/13/20 [Rx Last Taken Unknown] oxycodone 10 mg PO Q6H PRN 5 Days #20 tab 02/17/21 [Rx Last Taken Unknown] Allergy/AdvReac Type Severity Reaction Status Date / Time No Known Allergies Allergy Verified 02/17/21 17:57 Family History Other Anemia Anxiety CVA (cerebral vascular accident) Depression Surgical History Club foot of both lower extremities Umbilical hernia Social History Smoking Status: Current every day smoker tobacco type: cigarettes counseling given: provider counseling and counseling >10 minutes alcohol intake: current substance use type: former substance user additional social history: DOES USE ASPIRIN DOES USE IBUPROFEN ROS ROS ED Constitutional Constitutional ED: Denies chills or weight loss Eyes Eyes: Denies change in vision or diplopia ENT ENT ED: Denies ear pain, rhinorrhea or sore throat Cardiovascular Cardiovascular: Denies chest pain, orthopnea, palpitations or racing heartbeat Respiratory/Chest Respiratory/Chest: Denies cough, dyspnea or orthopnea Gastrointestinal Gastrointestinal: Denies abdominal pain, diarrhea, nausea or vomiting Genitourinary Genitourinary ED: Denies dysuria, hematuria or urinary frequency Musculoskeletal Musculoskeletal: Reports other Details: See history of present illness ; Denies arthralgias or myalgias Integumentary Denies abscess or rash Neurologic Neurologic: Denies headache(s) or weakness Psychiatric Psychiatric: Denies anxiety, depression, suicidal ideation or suicidal thoughts Endocrine Endocrinology: Denies polydipsia, polyphagia or polyuria Allergic/Immunologic Allergic/Immunologic ED: Denies mouth swelling, tongue swelling or urticaria EXAM Physical Exam Const Vital Signs: 02/17/21 17:55 Temperature 97.5 F L Temperature Source Temporal Pulse Rate 103 H Respiratory Rate 14 Blood Pressure 109/78 Blood Pressure Mean 88 Pulse Ox 97 Oxygen Delivery Method Room Air Positive well nourished and well developed General Appearance ED: well developed HEENT Reports normocephalic, head/scalp atraumatic, TM's clear and moist mucous membranes Negative for trauma Tympanic Membrane ED: Yes TM's clear Eyes PERRL and EOMs intact bilaterally Neck no lymphadenopathy, supple and no JVD Resp normal respiratory effort and clear to auscultation bilaterally Cardio regular rate, regular rhythm and no murmurs GI normal to inspection, nondistended, normoactive bowel sounds and non-tender Palpation: soft Back/Spine no CVA tenderness and normal ROM Extremity Extremity Narrative: Patient is holding her right knee about 45 degrees. There is deformity of the proximal tibia. Limited range of motion due to pain. Neurovascular intact distal General Extremety ED: Negative for edema General Extremity: Negative for edema Neuro oriented x3 and CN's II-XII intact bilaterally Sensorium / Orientation: alert Motor Exam: strength 5/5 throughout Psych mental status grossly normal Mood & Affect: Negative for depressed or tearful Skin no rashes or lesions noted and no wounds MDM MDM MDM Narrative Medical decision making narrative: X-rays reveal a comminuted tibial plateau fracture with lateral depression. Case was discussed with local orthopedics who recommends transfer to trauma center. I spoke with Betty bae who recommends the patient be discharged home with a knee immobilizer and crutches and follow- up in the office. Their orthopedist does not understand why she needs to be transferred tonight. Radiography Diagnostic Testing: Clinical Impression(s) from Imaging Studies Knee X-Ray 02/17/21 18:35 IMPRESSION: Proximal tibial/plateau fracture with lateral plateau depression. Hemarthrosis. Electronically Signed: James Key MD (Brooks) at 19:12 EDT , Service support , Discharge Plan Triage Chief Complaint: Lower Extremity Injury ED Provider: Александр Cedeno Dx/Rx/DC Orders Clinical Impression: Closed fracture of right tibial plateau Instructions: ED Fracture, Lower Extremity Prescriptions: New oxycodone 10 mg tablet 10 mg PO Q6H PRN (Reason: pain) 5 Days Qty: 20 RF: 0 No Action venlafaxine 75 MG tablet 75 mg PO BID Qty: 60 RF: 0 Primary Care Provider: Chucho Bates Referrals: Chucho Bates MD [Primary Care Provider] - Disposition Disposition: Home, Self Care
[2021-02-17] MEDS: Ondansetron 4 MG/2 ML Vial IV (18:15)
[2021-02-17] MEDS: Morphine 4 MG/ML Syringe IV ×2 (18:15→18:55)
--- NOTE | 2021-02-17 18:35 | RAD_ITS ---
STUDY: X-RAY - RIGHT KNEE REASON FOR EXAM: Female, 35 years old. trauma, pain TECHNIQUE: 2 view(s) of the knee. COMPARISON: None. FINDINGS: Normal visualized distal femur. Comminuted fracture of the proximal tibia with extension to the lateral and central tibial plateau. There is significant depression involving the lateral tibial plateau. Normal proximal tibiofibular articulation. Normal medial femorotibial compartment. Normal lateral femorotibial compartment. Normal patellofemoral articulation. Hemarthrosis noted. The soft tissue structures are unremarkable. RAD/Knee 1 or 2 Views IMPRESSION: Proximal tibial/plateau fracture with lateral plateau depression. Hemarthrosis. Electronically Signed: James Key MD (Brooks) at 19:12 EDT , Service support ,
[2021-02-17 20:27] VITALS: BP 117/70; PULSE 74; RESP 17; O2SAT 98
== END 2021-02-17 20:47 | disposition home or self-care (01) ==
PROVIDERS: Emergency Provider Emergency Medicine; PCP Family Medicine
DX: S82.141A Displaced bicondylar fracture of right tibia, initial encounter for closed fracture (principal); M25.561 Pain in right knee; F32.A Depression, unspecified; F41.9 Anxiety disorder, unspecified; F17.210 Nicotine dependence, cigarettes, uncomplicated; Z79.899 Other long term (current) drug therapy; V80.010A Animal-rider injured by fall from or being thrown from horse in noncollision accident, initial encounter; Y93.89 Activity, other specified; Y92.89 Other specified places as the place of occurrence of the external cause; Y99.8 Other external cause status
CPT/HCPCS: 73560; 96374; 96375; 99285; A4216; J2405

== ENCOUNTER 2021-09-20 21:22 | Emergency (ER) | payer MEDICAID, SELFPAY ==
[2021-09-20 21:22] VITALS: BP 147/78; PULSE 135; RESP 18; TEMP 36.1; O2SAT 100; BMI 18.6
--- NOTE | 2021-09-20 21:47 | EKG12_ITS ---
Test Reason : DYSRHYTHMIA Blood Pressure : / mmHG Vent. Rate : 096 BPM Atrial Rate : 096 BPM P-R Int : 122 ms QRS Dur : 084 ms QT Int : 388 ms P-R-T Axes : 077 076 047 degrees QTc Int : 490 ms Normal sinus rhythm Normal ECG Confirmed by SAIGE DE LA O, MIGUELINA ([id number]), movie editor CHANDU EPPS ([id number]) on 09/21/2021 10:24:56 AM Referred By: ABBY Confirmed By:MIGUELINA MOULTON MD
--- NOTE | 2021-09-20 21:48 | EDS_ITS ---
HPI History of Present Illness Chief Complaint: Anxiety Narrative Narrative: Patient presents with panic attack that began approximately 2 hours ago. She states that she has past medical history of anxiety for which she takes Effexor. She was recently switched to 250 mg. Over the last 3 weeks, she has been noncompliant and states that she forgets to take her medication. Whenever she does take it after she has been off of it for a while, she states she began nauseated after trying to take it again. She feels heart palpitations and anxiety. She denies any suicidal ideation or hallucinations. She had panic attacks in the past and she usually tries to fight through them. This 1 is lasting longer than usual. She states her last panic attack was probably a few weeks ago. [facility] Medical History (Updated 09/20/21 @ 23:26 by Adeel Arellano MD) Anxiety Anxiety and depression Depression History of blood clots History of blood transfusion Right tibial fracture Home Medications hydroxyzine pamoate [Vistaril] 50 mg PO TID PRN #20 cap 09/20/21 [Rx Last Taken Unknown] venlafaxine 150 mg PO DAILY 09/20/21 [History Last Taken Unknown] Allergy/AdvReac Type Severity Reaction Status Date / Time No Known Allergies Allergy Verified 09/20/21 21:24 Family History Other Anemia Anxiety CVA (cerebral vascular accident) Depression Surgical History Club foot of both lower extremities Umbilical hernia Social History Smoking Status: Current every day smoker tobacco type: cigarettes and e- cigarettes counseling given: provider counseling and counseling >10 minutes alcohol intake: current substance use type: former substance user additional social history: DOES USE ASPIRIN DOES USE IBUPROFEN ROS ROS ED ROS Narrative Constitutional: No fever, no chills. HEENT: No sore throat. No neck pain. No loss of vision. No rhinorrhea. Cardiovascular: No chest pain. Positive palpitations. No pedal edema. Respiratory: No cough, no shortness of breath. Abdominal: No abdominal pain. No nausea. No vomiting. Genitourinary: No dysuria. No hematuria. Musculoskeletal: No myalgias. No arthralgias. Neurologic: No headaches. No dizziness. No lightheadedness. Skin: No rash. No change in color. Psychiatric: No depression. Positive anxiety. No suicidal ideation. No hallucinations. EXAM Physical Exam Narrative Exam Narrative: Afebrile. Vital signs noted. HEENT: Normocephalic. Atraumatic. PERRL, EOMI. Neck soft and supple. No point tenderness or step off. Cardiovascular: Positive tachycardia no murmurs, rubs, or gallops appreciated. Respiratory: No tachypnea. Lungs clear to auscultation bilaterally. Gastrointestinal: Abdomen soft, nontender, with normoactive bowel sounds. No rebound or guarding. Neurological: Awake. Alert. Nonfocal, nonlateralizing. Skin: No rash. Normal color. No pallor. Musculoskeletal: No pedal edema. Full range of motion extremities. Psychiatric: No active hallucinations, no suicidal ideation. Anxious appearing. Const Vital Signs: 09/20/21 21:22 Temperature 96.9 F L Temperature Source Temporal Pulse Rate 135 H Respiratory Rate 18 Blood Pressure 147/78 H Blood Pressure Mean 101 Pulse Ox 100 Oxygen Delivery Method Room Air MDM MDM MDM Narrative Medical decision making narrative: Initially, patient was administered Vistaril 50 mg orally. EKG will be obtained. EKG demonstrates normal sinus rhythm at 96 bpm without ectopy or acute ST changes. No STEMI. Upon repeat examination, she is resting comfortably with the lights out. Her heart rate had normalized on her EKG. She states she feels mild to moderately improved. At this point in time, I feel she be discharged safely home with follow-up. She will be given a prescription for Vistaril 50 mg to take up to 3 times a day for her panic attacks and anxiety. Return instructions were reviewed. Disposition is discharged home in improved and stable condition. Discharge Plan Triage Chief Complaint: Anxiety ED Provider: Adeel Arellano Dx/Rx/DC Orders Clinical Impression: Anxiety, Panic attack Instructions: ED Panic Attack Prescriptions: New hydroxyzine pamoate [Vistaril] 50 mg capsule 50 mg PO TID PRN (Reason: anxiety) Qty: 20 RF: 0 No Action venlafaxine 75 MG tablet 150 mg PO DAILY RF: 0 Primary Care Provider: Chucho Bates Referrals: Chucho Bates MD [Primary Care Provider] - 3-5 Days if not improving Disposition Disposition: Home, Self Care
[2021-09-20] MEDS: hydrOXYzine PAM 25 MG Capsule 50 MG PO (21:54)
[2021-09-20 23:23] VITALS: BP 130/70; PULSE 78; RESP 16; O2SAT 97
== END 2021-09-20 23:33 | disposition home or self-care (01) ==
PROVIDERS: Emergency Provider Emergency Medicine; PCP Family Medicine; Visit Provider Emergency Medicine
DX: F41.0 Panic disorder [episodic paroxysmal anxiety] (principal); F17.210 Nicotine dependence, cigarettes, uncomplicated; Z79.899 Other long term (current) drug therapy
CPT/HCPCS: 93005; 99283

== ENCOUNTER 2023-11-05 00:14 | Emergency (ER) | payer SELFPAY ==
[2023-11-05 00:15] VITALS: BP 121/82; PULSE 150; RESP 18; TEMP 36.2; O2SAT 99; BMI 21.1
--- NOTE | 2023-11-05 00:37 | EKG12_ITS ---
Test Reason : CP Blood Pressure : / mmHG Vent. Rate : 156 BPM Atrial Rate : 156 BPM P-R Int : 136 ms QRS Dur : 070 ms QT Int : 302 ms P-R-T Axes : 085 080 078 degrees QTc Int : 486 ms Critical Test Result: High HR Probable Atrial flutter with 2:1 conduction Septal infarct , age undetermined ST & T wave abnormality, consider inferolateral ischemia Abnormal ECG Confirmed by Avery Metcalf ([id number]), copy editor LOLIS ASHFORD ([id number]) on 11/05/2023 9:52:38 AM Referred By: CHELSEA Confirmed By:Avery Metcalf
--- NOTE | 2023-11-05 00:37 | CT_ITS ---
EXAM: CT ANGIOGRAPHY CHEST WITHOUT AND WITH INTRAVENOUS CONTRAST CLINICAL INDICATION: chest pain with inspiration TECHNIQUE: Helically acquired angiography images were obtained of the chest without and with intravenous contrast. CTDIvol = ( 7.11 ) mGy, DLP = ( 130.44 ) mGycm This CT exam was performed using one or more of the following dose reduction techniques: automated exposure control, adjustment of the mA and/or kV according to patient size, and/or use of iterative reconstruction technique. MIP reconstructed images were created and reviewed. CONTRAST: IV 75mL Isovue-300 COMPARISON: No relevant prior studies available. FINDINGS: PULMONARY ARTERIES: Unremarkable. Normal in caliber. No evidence of pulmonary embolism. AORTA: Unremarkable. Normal in caliber. No evidence of dissection. GREAT VESSELS OF AORTIC ARCH: Unremarkable. Normal in caliber. No evidence of dissection. LUNGS AND PLEURAL SPACES: Unremarkable. No mass. No consolidation or edema. No pleural effusion or thickening. No pneumothorax. HEART: Unremarkable. Heart size is normal. No pericardial effusion. No significant coronary artery calcifications. MEDIASTINUM: Small hiatal hernia suggested. No mediastinal or hilar adenopathy. Esophagus is unremarkable. THYROID: Unremarkable. No thyroid lesions. BONES/JOINTS: Unremarkable. No suspicious lytic or blastic abnormality. CT/CTA Chest W/WO Contrast IMPRESSION: No PE, aortic dissection or pneumonia. Electronically Signed: Donta Collazo MD at 3:00 EDT ,
[2023-11-05 01:04] LABS: International Normalized Ratio 1.1; Partial Thromboplast Time 26.8 Seconds (24.1-36.2)
[2023-11-05 01:05] LABS: Internal QC Validated? YES +Cl - CLEAR BKGD; Pregnancy, Serum, hCG Quali. NEGATIVE Negative
[2023-11-05] MEDS: 0.9% Normal Saline (1000mL) 1,000 ML 999 ML IV (01:08)
[2023-11-05] MEDS: LORazepam 2 MG/ML Syringe 1 MG IV (01:09)
[2023-11-05 01:11] LABS: Absolute Lymphocyte Count 6.07 X10^3/uL (0.83-4.51); Absolute Neutrophil Count 8.3 X10^3/uL (2.0-7.7); Basophil% 0.6 % (0-1); Eosinophil# 0.16 X10^3/uL; Hematocrit 38.2 % (37-47); Hemoglobin 12.7 g/dL (12.0-15.0); Lymphocyte # 6.07 X10^3/ul (0.83-4.51); Lymphocyte % 37.6 % (19-41); Mean Corp Hgb Conc 33.2 g/dL (32-36); Mean Corpuscular Hgb 30.5 pg (27.0-32.0); Mean Corpuscular Volume 91.8 fL (81-99); Mean Platelet Vol. 12.6 fl (6.2-12.0); Monocyte# 1.28 X10^3/uL; Monocyte% 7.9 % (0-10); NRBC Flagged by Analyzer 0 % (0-5); Neutrophil # 8.29 X10^3/uL (2.7-7.7); Neutrophil % 51.5 % (47-70); POSITIVE DIFFERENTIAL YES; POSITIVE MORPHOLOGY YES; Platelet Count 291 K/mm3 (150-450); RBC Distribution Width CV 12.7 % (11.6-14.6); RBC Distribution Width SD 42.5 fl (35.1-43.9); Red Blood Count 4.16 M/mm3 (4.2-5.4); White Blood Count 16.1 K/mm3 (4.4-11.0)
[2023-11-05 01:15] VITALS: BP 101/75; PULSE 87; RESP 16; O2SAT 100
[2023-11-05 01:18] LABS: Anion Gap 6 (5-15); BUN 10 mg/dL (7-18); BUN/Creat Ratio 10.7 RATIO (10-20); Calcium,Total 9.4 mg/dL (8.5-10.1); Chloride 104 mmol/L (98-107); Creatinine, Serum 0.94 mg/dL (0.55-1.02); EST Glomerular Filtration Rate 72 mL/min (>60); Est Glom Filt Rate - Afr Amer 87 mL/min (>60); Estimated Creatinine Clearance 77.45 ml/min; Glucose 149 mg/dL (74-106); Magnesium 1.9 mg/dL (1.6-2.6); Potassium 3.4 mmol/L (3.5-5.1); Sodium Level 135 mmol/L (136-145); Thyroid Stim Hormone (TSH) 1.95 uIU/mL (0.358-3.74); Troponin-I HS < 3 pg/mL (3.0-54.0)
[2023-11-05 01:33] LABS: Differential Indicated SCAN CRITERIA MET
[2023-11-05 01:39] LABS: Differential Comment SCANNED
[2023-11-05 02:00] VITALS: BP 100/76; PULSE 81; RESP 16; O2SAT 100
[2023-11-05 02:10] VITALS: O2SAT 99
[2023-11-05 03:00] VITALS: BP 100/78; PULSE 78; RESP 20; O2SAT 98
[2023-11-05 03:26] LABS: Troponin-I HS 4 pg/mL (3.0-54.0)
--- NOTE | 2023-11-05 03:37 | EDS_ITS ---
HPI History of Present Illness Chief Complaint: Palpitations Informant: patient and spouse/S.O. Narrative Narrative: Patient is a 38-year-old female with past medical history of anxiety as well as alcohol abuse. She states that this evening she was sleeping and that she awoke with sensation of her heart racing and chest discomfort and folic she was having a panic attack. She states that she tried to relax but was unable to do so and was concerned that she may be having some type of cardiac event comes to the hospital for evaluation [facility] Medical History (Updated 11/05/23 @ 03:[address] Donta Duval, DO) Right tibial fracture Depression Anxiety Anxiety and depression History of blood transfusion History of blood clots Home Medications ?Medication ?Instructions ?Recorded ?Last Taken ?Type buspirone 10 mg tablet 20 mg PO TID 11/05/23 Unknown History Allergy/AdvReac Type Severity Reaction Status Date / Time No Known Allergies Allergy Verified 09/20/21 21:24 Family History Other Anemia Anxiety CVA (cerebral vascular accident) Depression Surgical History Club foot of both lower extremities Umbilical hernia Social History Smoking Status: Current every day smoker tobacco type: cigarettes and e- cigarettes alcohol intake: current substance use type: former substance user additional social history: DOES USE ASPIRIN DOES USE IBUPROFEN ROS ROS ED Constitutional Constitutional ED: Denies chills or fever(s) Eyes Eyes: Denies change in vision ENT ENT ED: Denies sore throat Cardiovascular Cardiovascular: Reports chest pain, palpitations and racing heartbeat Respiratory/Chest Respiratory/Chest: Denies cough or dyspnea Gastrointestinal Gastrointestinal: Denies abdominal pain, diarrhea, nausea or vomiting Genitourinary Genitourinary ED: Denies dysuria Musculoskeletal Musculoskeletal: Denies myalgias Integumentary Denies rash Neurologic Neurologic: Denies headache(s) Psychiatric Psychiatric: Reports anxiety; Denies suicidal ideation or suicidal thoughts Hematologic/Lymphatic Hematologic/Lymphatic: Denies easy bleeding or easy bruising EXAM Physical Exam Const Vital Signs: 11/05/23 00:15 11/05/23 00:21 11/05/23 01:15 Temperature 97.1 F L Temperature Source Oral Pulse Rate 150 H 87 Respiratory Rate 18 16 Respiratory Effort Short of Breath Blood Pressure 121/82 H 101/75 Blood Pressure Mean 95 83 Pulse Ox 99 100 Oxygen Delivery Method Room Air Nasal Cannula Oxygen Flow Rate (L/min) 2 11/05/23 02:00 11/05/23 02:10 11/05/23 03:00 Temperature Temperature Source Pulse Rate 81 78 Respiratory Rate 16 20 H Respiratory Effort Blood Pressure 100/76 100/78 Blood Pressure Mean 84 85 Pulse Ox 100 99 98 Oxygen Delivery Method Nasal Cannula Room Air Room Air Oxygen Flow Rate (L/min) 2 11/05/23 03:43 Temperature 98.3 F Temperature Source Pulse Rate 90 Respiratory Rate 18 Respiratory Effort Blood Pressure 98/60 Blood Pressure Mean 72 Pulse Ox 98 Oxygen Delivery Method Oxygen Flow Rate (L/min) Positive well nourished and well developed General Appearance ED: well developed; Negative for pallor HEENT HEENT Narrative: Normocephalic atraumatic Eyes PERRL and EOMs intact bilaterally General Eye ED: Negative for pale conjunctiva or scleral icterus Neck supple Neck Narrative: No nuchal rigidity or meningeal signs Chest Wall palpation of chest normal Chest Narrative: No bony deformity or crepitance Resp normal respiratory effort and clear to auscultation bilaterally Cardio regular rhythm Rate: tachycardic and other Other Details: Tachycardic rate with regular rhythm No murmurs rubs or gallop Radial and carotid pulses are equal and symmetric GI normal to inspection, nondistended, normoactive bowel sounds, non-tender, non- distended and no masses Auscultation: normoactive bowel sounds Palpation: soft Extremity normal to inspection Extremity Narrative: No asymmetric edema no pitting edema negative Homans' sign bilaterally Neuro oriented x3, CN's II-XII intact bilaterally and no sensory deficits noted Sensorium / Orientation: alert Motor Exam: strength 5/5 throughout Psych Psych Narrative: Patient has a nervous/anxious affect Skin no rashes or lesions noted General Skin Exam: Negative for jaundice or pallor MDM MDM MDM Narrative Medical decision making narrative: Patient arrived to the ER tachycardic at approximate 150 to 160 bpm. Concern is for cardiac dysrhythmia versus anxiety attack versus PE versus acute blood loss anemia versus electrolyte abnormality. Secondary to his basic blood work was obtained as well as a CTA. Labs revealed leukocytosis which is most likely stress response but otherwise no clinically significant findings. The patient's initial troponin was less than 3 and the delta increased to a value of 4 which is not clinically significant. After patient was hydrated and treated with Ativan her symptoms improved and her heart rate reduced to approximately 75 bpm. There were no further ST segment depressions noted indicating they were truly from her rate. CTA revealed no PE or dissection or pneumonia. Therefore at this time with resolution of her tachycardia and negative overall workup going against PE dissection pneumonia acute blood loss anemia Imelda abnormality or cardiac dysrhythmia patient is otherwise safe for discharge. History & Record Review Discussion w/independent historian: Patient Lab Data Attestation: I reviewed the patient's lab results. Labs: Laboratory Results - last 24 hr 11/05/23 11/05/23 00:20 02:57 WBC 16.1 H RBC 4.16 L Hgb 12.7 Hct 38.2 MCV 91.8 MCH 30.5 MCHC 33.2 RDW Std Deviation 42.5 RDW Coeff of Christelle 12.7 Plt Count 291 MPV 12.6 H Immature Gran % (Auto) 1.400 H Neut % (Auto) 51.5 Lymph % (Auto) 37.6 [place] % (Auto) 7.9 Eos % (Auto) 1.0 Baso % (Auto) 0.6 Absolute Neuts (auto) 8.3 H Absolute Lymphs (auto) 6.07 H Nucleated RBC % 0 Differential Comment SCANNED PT 14.0 INR 1.1 APTT 26.8 Sodium 135 L Potassium 3.4 L Chloride 104 Carbon Dioxide 25.0 Anion Gap 6 BUN 10 Creatinine 0.94 Estim Creat Clear Calc 77.45 Est GFR (MDRD) Af Amer 87 Est GFR (MDRD) Non-Af 72 BUN/Creatinine Ratio 10.7 Glucose 149 H Calcium 9.4 Magnesium 1.9 Troponin I High Sens < 3 L 4 TSH 1.95 Serum , Qual NEGATIVE Radiography Diagnostic Testing: Clinical Impression(s) from Imaging Studies Chest CTA 11/05/23 00:37 IMPRESSION: No PE, aortic dissection or pneumonia. Electronically Signed: Donta Collazo MD at 3:00 EDT , Discharge Plan Triage Chief Complaint: Palpitations ED Provider: Donta Duval Dx/Rx/DC Orders Clinical Impression: Palpitations, Panic attacks, Sinus tachycardia Instructions: Understanding Tachycardia, ED Palpitations, ED Panic Attack Prescriptions: No Action buspirone 10 mg tablet 20 mg PO TID Primary Care Provider: Chucho Bates Referrals: Chucho Bates MD [Primary Care Provider] - Activity Restrictions/Additional Instructions: Your workup today showed no sign of heart damage blood clot or abnormal heart rhythm. Please follow-up with your family doctor for repeat evaluation and return to the ER should you have any further concerns Print Language: Kosovan Disposition Disposition: Home, Self Care Discharge Date/Time: 11/05/23 03:45
[2023-11-05 03:43] VITALS: BP 98/60; PULSE 90; RESP 18; TEMP 36.8; O2SAT 98
== END 2023-11-05 03:45 | disposition home or self-care (01) ==
PROVIDERS: Emergency Provider Emergency Medicine; PCP Family Medicine; Visit Provider Emergency Medicine
DX: F41.0 Panic disorder [episodic paroxysmal anxiety] (principal); F17.210 Nicotine dependence, cigarettes, uncomplicated; Z79.899 Other long term (current) drug therapy; F17.290 Nicotine dependence, other tobacco product, uncomplicated; R07.9 Chest pain, unspecified; R00.0 Tachycardia, unspecified
CPT/HCPCS: 71275; 80048; 83735; 84443; 84484; 84703; 85025; 85610; 85730; 93005; 96361; 96374; 99283; J7030; Q9967; A4216

== ENCOUNTER 2024-08-27 22:44 | Emergency (ER) | payer MEDICAID, SELFPAY ==
[2024-08-27 22:44] VITALS: BP 145/121; PULSE 112; RESP 22; TEMP 36.6; O2SAT 100; BMI 21.2
--- NOTE | 2024-08-27 23:04 | EX.ED.DYSGE1 ---
HPI History of Present Illness Chief Complaint: Anxiety Narrative Narrative: Chief complaint and HPI: Anxiety/panic attack. 39-year-old female with past medical history of anxiety, depression, panic attacks presents for evaluation of anxiety/panic attack. Patient states that she gets intermittent panic attacks. She states when she can feel them coming on she can usually calm herself down. She states this episode was sudden. She states she was watching TV when she felt a sense of doom and that the world was fuzzy. She states she then became very anxious. She states that this is usually how her panic attacks feel and present. Nothing specifically caused the panic attack. She states that she is under a lot of stress with life. She denies any suicidal or homicidal ideation. She has been taking her buspirone and paroxetine. She does not have any short-term medication that she takes for panic attacks. Occasionally has intermittent hydroxyzine but feels that this does not work. Currently has not at home. Review of systems: See HPI Medications: As listed on the chart Allergies: As listed on the chart PFSH: Per chart Vital signs: As listed on the chart. Reviewed. Physical exam: Gen: A&O x3, anxious, pacing in the room, Head: Normocephalic, atraumatic Eyes: No sclera icterus, conjunctiva clear, PERRL, EOMI ENT: Moist mucous membranes Neck: Trachea midline, No JVD CV: Tachycardic, regular rhythm, no murmurs, no peripheral edema Resp: Lungs CTA BL, no w/r/c GI: Abd soft, non-distended, non-tender, no r/r/g Musc: Full ROM, no deformity Skin: Warm, dry Neuro: Alert, oriented, grossly intact, sensation intact Psych: Cooperative, anxious [facility] Medical History (Updated 08/28/24 @ 00:[address] Kash Mathews, DO) Right tibial fracture Depression Anxiety Anxiety and depression History of blood transfusion History of blood clots Home Medications ?Medication ?Instructions ?Recorded ?Last Taken ?Type buspirone 10 mg tablet 20 mg PO TID 11/05/23 Unknown History paroxetine HCl 30 mg tablet 30 mg PO DAILY 08/27/24 Unknown History Allergy/AdvReac Type Severity Reaction Status Date / Time No Known Allergies Allergy Verified 08/27/24 22:45 Family History Other Anemia Anxiety CVA (cerebral vascular accident) Depression Surgical History Club foot of both lower extremities Umbilical hernia Social History Smoking Status: Current every day smoker tobacco type: e-cigarettes alcohol intake: current substance use type: former substance user additional social history: DOES USE ASPIRIN DOES USE IBUPROFEN EXAM Physical Exam Const Vital Signs: 08/27/24 22:44 Temperature 98 F Temperature Source Oral Pulse Rate 112 H Respiratory Rate 22 H Blood Pressure 145/121 H Blood Pressure Mean 129 Pulse Ox 100 Oxygen Delivery Method Room Air MDM MDM MDM Narrative Medical decision making narrative: 39-year-old female with past medical history of anxiety, depression, panic attacks presents for evaluation of anxiety/panic attack. Panic attack started prior to arrival while watching TV. Patient is under a lot of stress. Has been taking her anxiety medication. On presentation, patient is pacing in the room. Anxious. She states that her symptoms feel like her typical panic attack. Differential includes anxiety reaction, panic attack. I am Ativan will be ordered for symptoms and patient will be monitored. She did not drive today. I do not think any further workup is needed. On reevaluation, patient is still feeling anxious although her symptoms have improved. Will give her a one-time hydroxyzine. On reevaluation, patient is calm. She is sitting in the bed. She is drinking water. Patient is comfortable discharging home. Follow-up with PCP. Return precautions explained. She confirmed understanding of plan. Impression: 1. Anxiety 2. Panic attack Discharge Plan Triage Chief Complaint: Anxiety ED Provider: Kash Mathews Dx/Rx/DC Orders Clinical Impression: Panic attack Instructions: Anxiety Disorders Tx, Anxiety Disorders Meds, ED Anxiety Reaction, ED Panic Attack Prescriptions: No Action buspirone 10 mg tablet 20 mg PO TID paroxetine HCl 30 mg tablet 30 mg PO DAILY Primary Care Provider: Chucho Bates Referrals: Chucho Bates MD [Primary Care Provider] - 3-5 Days Activity Restrictions/Additional Instructions: Follow-up with your primary care physician. Return back to the ED if symptoms change or worsen. Print Language: Citizen [place] Disposition Disposition: Home, Self Care
[2024-08-27] MEDS: Lorazepam 2 MG/ML WCH Syringe 1 MG IM (23:05)
[2024-08-28 00:43] VITALS: PULSE 89; RESP 16; O2SAT 98
== END 2024-08-28 00:44 | disposition home or self-care (01) ==
PROVIDERS: Emergency Provider Surgery; PCP Family Medicine; Visit Provider Surgery
DX: F41.0 Panic disorder [episodic paroxysmal anxiety] (principal); F17.290 Nicotine dependence, other tobacco product, uncomplicated; F32.A Depression, unspecified; Z79.899 Other long term (current) drug therapy; Z79.82 Long term (current) use of aspirin
CPT/HCPCS: 96372; 99282